=== PATIENT | female | born 1960 | race Caucasian/White ===

== ENCOUNTER 2018-04-25 11:39 | Emergency (ER) | payer OTHER ==
[~2018-04-25] VITALS: Ht 167.6 cm; Wt 79.4 kg
[~2018-04-25 11:39] MED LIST: AMBIEN5 M1 PO; BENADRYL25 MG PO; FINGERSTIX OTHER; GABAPENTIN100 M2 PO; GABAPENTIN300 M2 PO; Glucometer OTHER; LEVEMIR100 UNIT/1 SC; LISINOPRIL10 M1 PO; MIRTAZAPINE7.5 M1 PO; NICOTINE PATCH1 EAC3 TOP; NOVOLOG100 UNIT/2 SC; OMEPRAZOLE40 M1 PO; PAXIL10 M1 PO; PAXIL40 M1 PO; RISPERDAL1 M1 PO; RISPERDAL2 M1 PO; RISPERDAL25 MG/2 ML IM; TEST STRIPS1 EACH OTHER; TRAZODONE HCL100 M1 PO; TRAZODONE HCL50 M1 PO
--- NOTE | 2018-04-25 11:57 | ED GI/GU/ABDOMINAL COMPLAINT ---
History of Present Illness General Chief Complaint: Nausea, Vomiting, Diarrhea Stated Complaint: SEVERE DIARRHEA+N "I FEEL DEHYDRATED AND FATIGUED" Source: patient Exam Limitations: no limitations Vital Signs & Intake/Output Vital Signs & Intake/Output Vital Signs Date Time Temp Pulse Resp B/P B/P Pulse O2 O2 Flow FiO2 Mean Ox Delivery Rate 04/25 1345 97.1 82 18 120/77 98 Room Air 04/25 1217 98 Room Air 04/25 1152 98.5 84 16 118/80 98 Room Air Allergies Coded Allergies: naproxen (From ALEVE) (Severe, PALP 10/16/17) Triage Note: PRESENTS TO ED FRO EVALUATION OF N/V/D X 1 MONTH INTERMITTENTLY. REPORTS GENERALIZED WEAKNESS. Triage Nurses Notes Reviewed? yes ? N Is pt currently ? No Onset: Gradual Duration: constant Timing: recent history Quality/Severity: cramping Severity Numbers: 5 Radiation: no radiation HPI: Patient is a 57-year-old female with a past medical history of type 2 diabetes, alcohol abuse sobriety for over 10 years, cirrhosis, hypertension who presents emergency room with concerns of a one-month history of mild abdominal cramping, 4-5 episodes of loose watery diarrhea production a day with no blood no melena intermittent nausea. No abdominal pain today. States that eating makes better. Denies any fever chills back pain dysuria hematuria chest pain shortness of breath. Patient did have a endoscopy and colonoscopy in mid February with cutter grind tool technician Dr. Bradshaw with unremarkable findings. No recent antibiotic use denies any significant NSAID use (Janina MATA,Krishan) Reconcile Medications Blood Sugar Diagnostic (Test Strips) 1 EACH STRIP 1 STRIP OTHER TIDAC/HS blood sugar monitoring Diagnosis code Z79.4 Dicyclomine HCl 10 MG CAPSULE 1 CAP PO TID PRN ENTERITIS Diphenoxylate HCl/Atropine (Lomotil 2.5-0.025 MG Tablet) 2.5 MG-0.025 MG TABLET 1 TAB PO 4 TIMES/DAY PRN DIARRHEA Gabapentin 300 MG CAPSULE 300 MG PO Q4P PRN ANXIETY/AGITATION/INSOMNIA [Glucometer] 1 UNIT OTHER TIDAC/HS Blood sugar testing Diagnosis code Z79.4 May substitute any generic brand. Insulin Aspart (Novolog) 100 UNIT/ML VIAL 0 SC TIDAC diabetes <80,call MD 80-150 6 U 151-200 7 U 201-250 8 U 251-300 9 U 301-350 10 U 351-400 11 U Above 401 give 12 U & call MD Insulin Detemir (Levemir) 100 UNIT/ML VIAL 12 UNITS SC AT BEDTIME diabetes Lancets (Fingerstix) 1 EACH EACH 1 ZACK OTHER TIDAC/HS blood glucose testing Diagnosis code Z79.4 May substitute brand of lancet to any generic. Lisinopril 10 MG TABLET 10 MG PO DAILY hypertension Nicotine (Nicotine Patch) 21 MG/24 HOUR PATCH.TD24 21 MG TOP DAILY nicotine craving Omeprazole 40 MG CAPSULE.DR 1 CAP PO DAILY STOMACH PROBLEMS Ondansetron HCl (Zofran) 4 MG TABLET 1 TAB PO Q6-8P PRN NAUSEA Paroxetine HCl (Paxil) 40 MG TABLET 1 TAB PO DAILY anxiety/depression Risperidone (Risperdal) 2 MG TABLET 1 TAB PO BID psychotic symptoms Risperidone Microspheres (Risperdal Consta) 25 MG/2 ML SYRINGE 25 MG IM Q 2 WEEKS psychotic symptoms Last given 11/11/17. Next due 11/25/17. Trazodone HCl 100 MG TABLET 100 MG PO AT BEDTIME PRN INSOMNIA (Roland Robertson MD) Past History Travel History Traveled to [place] past 21 day No Medical History Any Pertinent Medical History? 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 No (Janina MATA,Krishan) Review of Systems Review of Systems Constitutional: Reports: no symptoms. EENTM: Reports: no symptoms. Respiratory: Reports: no symptoms. Cardiovascular: Reports: no symptoms. GI: Reports: see HPI. Genitourinary: Reports: see HPI. Musculoskeletal: Reports: no symptoms. Skin: Reports: no symptoms. Neurological/Psychological: Reports: no symptoms. Hematologic/Endocrine: Reports: no symptoms. Immunologic/Allergic: Reports: no symptoms. All Other Systems: Reviewed and Negative (Krishan Carmona) Physical Exam Physical Exam General Appearance: no apparent distress, alert, comfortable Head: atraumatic Eyes: Bilateral: normal appearance. Ears, Nose, Throat, Mouth: moist mucous membrane Neck: normal inspection Respiratory: normal breath sounds, chest non-tender Cardiovascular: regular rate/rhythm Gastrointestinal: normal bowel sounds, soft, non-tender Neurologic/Psych: no motor/sensory deficits, awake Skin: intact, normal color Core Measures ACS in differential dx? No Sepsis Present: No Sepsis Focused Exam Completed? No (Krishan Carmona) Progress Differential Diagnosis: AAA, AMI, appendicitis, biliary colic, bowel obstruction , colon cancer, cholecystitis, diverticulitis, endometritis, esophageal varices, gastritis, hepatitis, hernia, hemorrhoids, ischemic bowel, inflamm bowel dis, kidney stone, Kanika-Aimee tear, ovarian cyst, ovarian torsion, pancreatitis, PID/cervicitis, peptic ulcer, PUD/GERD, perforated viscous, SBO, UTI/pyelo Plan of Care: Orders Procedure Date/time Status CULTURE,STOOL 04/25 123 Active OVA AND PARASITE ANTIGENS 04/25 123 Active C.DIFFICILE 04/25 123 Active COMPREHENSIVE METABOLIC PANEL 04/25 1153 Complete CBC WITHOUT DIFFERENTIAL 04/25 1153 Complete Laboratory Tests 04/25/18 1201: Anion Gap 12, Estimated GFR 51 L, BUN/Creatinine Ratio 11.8, Glucose 148 H, Calcium 9.1, Total Bilirubin 0.6, AST 30, ALT 34, Alkaline Phosphatase 48, Total Protein 7.2, Albumin 4.0, Globulin 3.2, Albumin/Globulin Ratio 1.3, CBC w Diff NO MAN DIFF REQ, RBC 4.69, MCV 86.0, MCH 29.1, MCHC 33.9, RDW 13.8, MPV 9.4, Gran % 59.7, Lymphocytes % 21.9, Monocytes % 4.2, Eosinophils % 14.0 H, Basophils % 0.2, Absolute Granulocytes 3.0, Absolute Lymphocytes 1.1 L, Absolute Monocytes 0.2, Absolute Eosinophils 0.7, Absolute Basophils 0 Microbiology 04/25 123 STOOL: Cryptosporidium Antigen - ORD 05/27 1231 STOOL: Giardia Antigen (MINDY) - ORD 04/25 1231 STOOL: Clostridium difficile Toxin A & B - ORD 04/25 1231 STOOL: Stool Culture - ORD Patient on initial examination and resting comfortably bedside no apparent distress afebrile nontender abdomen And reviewed all blood work with patient patient was able tolerate by mouth Denies any symptoms for concerns of C. difficile time No stool was produced for culture in the ER Patient was strongly advised follow-up with discharge instructions and plan Patient does admit to me that she has poor dietary habits Initial ED EKG: none (Krishan Carmona) Departure Departure Disposition: HOME OR SELF CARE Condition: Stable Clinical Impression Primary Impression: Enteritis Secondary Impressions: Diarrhea Referrals: Anmol AGUILERA,Raquel (PCP/Family) Additional Instructions: As discussed begin drinking plenty of water for hydration. Prescription of Lomotil for your symptoms Zofran for nausea and Bentyl for your symptoms. Prescriptions waiting at [facility]. If no better on Thursday follow-up with gastroenterology Dr. Bradshaw. If symptoms worsen or if you develop new concerning symptom return to emergency room. Departure Forms: Customer Survey General Discharge Information Prescriptions: Current Visit Scripts Ondansetron HCl (Zofran) 1 TAB PO Q6-8P PRN NAUSEA #10 TAB Diphenoxylate HCl/Atropine (Lomotil 2.5-0.025 MG Tablet) 1 TAB PO 4 TIMES/DAY PRN DIARRHEA #20 TAB Dicyclomine HCl 1 CAP PO TID PRN ENTERITIS #9 CAP (Krishan Carmona) PA/HAND I THERMAL CUTTER Co-Sign Statement Statement: ED Attending supervision documentation- I saw and evaluated the patient. I have also reviewed all the pertinent lab results and diagnostic results. I agree with the findings and the plan of care as documented in the PA's/HAND I THERMAL CUTTER's documentation. x I have reviewed the ED Record and agree with the PA's/HAND I THERMAL CUTTER's documentation. [] Additions or exceptions (if any) to the PAs/HAND I THERMAL CUTTER's note and plan are summarized below: [] (Ailyn AGUILERA,Roland)
[2018-04-25 12:10] LABS: ABSOLUTE BASOPHIL COUNT 0 /CUMM (0.0-0.2); ABSOLUTE EOSINOPHIL COUNT 0.7 /CUMM (0.0-0.7); ABSOLUTE LYMPH COUNT 1.1 /CUMM (1.2-3.4); ABSOLUTE MONOCYTE COUNT 0.2 /CUMM (0.10-0.60); BASOPHIL % 0.2 % (0.0-2.0); GRANULOCYTE % 59.7 % (42.2-75.2); HEMATOCRIT 40.3 % (37-47); MEAN CORPUSCULAR HGB 29.1 PG (27.0-31.0); MEAN CORPUSCULAR HGB CONC 33.9 G/DL (33.0-37.0); MEAN PLATELET VOLUME 9.4 FL (7.4-10.4); RBC DISTRIBUTION WIDTH 13.8 % (11.5-14.5); RED BLOOD CELL CT 4.69 /CUMM (4.20-5.40)
[2018-04-25 12:14] LABS: PLATELET COUNT 82 /CUMM (130-400)
[2018-04-25] MEDS ORDERED: LOMOTIL 2.5-0.1 EACH PO (13:35)
[2018-04-25] MEDS ORDERED: ZOFRAN4 M2 PO (13:35)
[2018-04-25] MEDS ORDERED: DICYCLOMINE HCL10 M1 PO (13:35)
[2018-04-25 13:45] VITALS: BP 120/77
== END 2018-04-25 13:45 ==
LOC: ERH 11:39
PROVIDERS: Emergency Medicine
DX: K52.9 Noninfective gastroenteritis and colitis, unspecified (principal)
CPT/HCPCS: 87015; 87045; 87328; 87329; 87899; 87899-59

== ENCOUNTER 2018-05-24 11:51 | Observation (INO) | payer OTHER ==
[~2018-05-24] VITALS: Ht 167.6 cm; Wt 79.9 kg
[~2018-05-24 11:51] MED LIST changes: +DICYCLOMINE HCL10 M1 PO; +LOMOTIL 2.5-0.1 EACH PO; +ZOFRAN4 M2 PO
[2018-05-24 12:30] LABS: ABSOLUTE BASOPHIL COUNT 0 /CUMM (0.0-0.2); ABSOLUTE EOSINOPHIL COUNT 0.4 /CUMM (0.0-0.7); ABSOLUTE GRANULOCYTE CT 3.4 /CUMM (1.4-6.5); ABSOLUTE LYMPH COUNT 1.2 /CUMM (1.2-3.4); ABSOLUTE MONOCYTE COUNT 0.3 /CUMM (0.10-0.60); BASOPHIL % 0.2 % (0.0-2.0); EOSINOPHIL % 8.1 % (0-5); GRANULOCYTE % 63.1 % (42.2-75.2); HEMATOCRIT 38.7 % (37-47); MEAN CORPUSCULAR HGB 29.7 PG (27.0-31.0); MEAN CORPUSCULAR HGB CONC 34.3 G/DL (33.0-37.0); MEAN CORPUSCULAR VOLUME 86.4 FL (81.0-99.0); MEAN PLATELET VOLUME 9.5 FL (7.4-10.4); PLATELET COUNT 80 /CUMM (130-400); RBC DISTRIBUTION WIDTH 14.1 % (11.5-14.5); RED BLOOD CELL CT 4.48 /CUMM (4.20-5.40); WHITE BLOOD CELL COUNT 5.3 /CUMM (4.8-10.8)
--- NOTE | 2018-05-24 12:58 | ED SYNCOPE COMPLAINT ---
History of Present Illness General Chief Complaint: Syncope and Near-Syncope Stated Complaint: SIB PCP S/P "BLACKING OUT AND COLLAPSING" Source: patient Exam Limitations: no limitations Vital Signs & Intake/Output Vital Signs & Intake/Output Vital Signs Date Time Temp Pulse Resp B/P B/P Pulse O2 O2 Flow FiO2 Mean Ox Delivery Rate 05/24 1432 97 Room Air 05/24 1419 98.1 68 12 144/90 97 Room Air 05/24 1158 97.6 82 18 114/76 99 Room Air Allergies Coded Allergies: naproxen (From ALEVE) (Severe, PALP 10/16/17) Reconcile Medications Dulaglutide (Trulicity) 0.75 MG/0.5 ML PEN.INJCTR 1 INJ SC QW DIABETES ( Reported) Empagliflozin (Jardiance) 10 MG TABLET 1 TAB PO DAILY DIABETES (Reported) Gabapentin 400 MG CAPSULE 1 CAP PO 4 TIMES/DAY ANXIETY (Reported) Lisinopril 10 MG TABLET 10 MG PO DAILY hypertension Nicotine (Nicotine Patch) 21 MG/24 HOUR PATCH.TD24 21 MG TOP DAILY nicotine craving Pantoprazole Sodium 40 MG TABLET.DR 1 TAB PO DAILY GI (Reported) Paroxetine HCl (Paxil) 40 MG TABLET 1 TAB PO DAILY anxiety/depression Risperidone Microspheres (Risperdal Consta) 50 MG/2 ML SYRINGE 1 INJ SC Q 2 WEEKS MENTAL HEALTH (Reported) Sitagliptin Phosphate (Januvia) 100 MG TABLET 1 TAB PO DAILY DIABETES ( Reported) Trazodone HCl 100 MG TABLET 100 MG PO AT BEDTIME PRN INSOMNIA Triage Note: "I collapsed yesterday, I blacked out while I was standing at the counter." Denies BP/SOB but did feel lightheaded prior to syncopal episode. Feels lightheaded and "spacey". Reports similar episode last week also where she fell and broke her upper denture. Reports left shoulder pain, full ROM. Denies current pain, denies headache n/v. Orthos unremarkable Triage Nurses Notes Reviewed? yes Timing: recent history Precipitating Factors: blurred vision Loss of Consciousness: brief (seconds) HPI: Patient is a 57-year-old female with past medical history of anxiety depression and bipolar disorder and diabetes who was recently evaluated a month ago in the emergency room by me for concerns of diarrhea or patient states that she follow- up with her primary care doctor and was advised to continue medications that were administered by me. Patient states that the bowel movements have improved however yesterday patient felt dizzy lightheaded and flushed feeling on her face and then in a standing position in her kitchen and she fell and having a suspecting few seconds of syncopal episode or patient woke up with jaw pain biting her tongue and left shoulder pain. Her brother came to her aid however patient was artery alert and awake at the time Patient has remote history of alcohol use nothing recent denies any illicit drug use Patient still complains of "feeling off" denies any neck or low back pain or lower extremity pain (Krishan Carmona) Past History Travel History Traveled to [facility] past 21 day No Medical History Any Pertinent Medical History? 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 No (Krishan Carmona) Review of Systems Review of Systems Constitutional: Reports: no symptoms. EENTM: Reports: no symptoms. Respiratory: Reports: no symptoms. Cardiovascular: Reports: see HPI, syncope. GI: Reports: no symptoms. Genitourinary: Reports: no symptoms. Musculoskeletal: Reports: see HPI. Skin: Reports: no symptoms. Neurological/Psychological: Reports: no symptoms. All Other Systems: Reviewed and Negative (Krishan Carmona) Physical Exam Physical Exam General Appearance: no apparent distress, alert, comfortable Head: atraumatic Eyes: Bilateral: normal appearance, PERRL, EOMI. Ears, Nose, Throat: normal pharynx, normal ENT inspection Neck: no midline tenderness Respiratory: normal breath sounds, chest non-tender, no respiratory distress Cardiovascular: regular rate/rhythm Gastrointestinal: normal bowel sounds, soft, non-tender Extremities: normal inspection, no edema Cranial Nerves: normal hearing, normal speech, PERRL Skin: intact, warm/dry Comments: FACE- noted mandibular point tenderness with mild ecchymosis to the central midline the jaw Left shoulder generalized point tenderness noted full active range of motion normal inspection Core Measures ACS in differential dx? No CVA/TIA Diagnosis: No Sepsis Present: No Sepsis Focused Exam Completed? No (Janina MATA,Krishan) Progress Differential Diagnosis: AMI, aortic dissection, aortic valve, drug induced syncope, hyperventilation, orthostatic syncope, other valvular disease, pacemaker malfunction, pericardial tamponade, pulmonary embolus, seizure, sick sinus syndrome, subarachnoid hem., TIA/CVA, vasodepressor syncope, ventricular tach/fib Plan of Care: Orders Procedure Date/time Status Consistent Carbohydrate 1 05/[address] in observation 05/24 1500 Active Misc Message 05/24 1500 Active ED Holding Orders 05/24 1500 Active Vital Signs 05/24 1500 Active Code Status 05/24 1500 Active Add-on Test (ER Only) 05/24 1442 Active CULTURE,URINE 05/24 1400 Active Add-on Test (ER Only) 05/24 1346 Active URINE DRUG SCREEN FOR ER ONLY 05/24 1346 Complete URINALYSIS 05/24 1346 Complete PROLACTIN 05/24 1210 Complete ETHANOL 05/24 1210 Complete MISTAKE 05/24 1200 Active TROPONIN LEVEL 05/24 1200 Complete COMPREHENSIVE METABOLIC PANEL 05/24 1200 Complete CBC WITHOUT DIFFERENTIAL 05/24 1200 Complete EKG 05/24 1200 Active Laboratory Tests 05/24/18 1400: Urine Opiates Screen < 100, Methadone Screen 49, Barbiturate Screen < 60, Ur Phencyclidine Scrn < 6.00, Amphetamines Screen < 100, U Benzodiazepines Scrn < 85, Urine Cocaine Screen < 50, Urine Cannabis Screen < 5.00, Urinalysis LIGHT H , Urine Color YEL, Urine Clarity HAZY H, Urine pH 6.0, Ur Specific [place] <= 1.005, Urine Protein NEG, Urine Ketones NEG, Urine Nitrite NEG, Urine Bilirubin NEG, Urine Urobilinogen 0.2, Ur Leukocyte Esterase SMALL H, Ur Microscopic SEDIMENT EXAMINED, Urine WBC 15-25 H, Ur Epithelial Cells FEW, Urine Bacteria FEW H, Urine Mucus RARE, Micro UA Comment [place] YEAST H, Urine Hemoglobin NEG, Urine Glucose >=1000 H 06/25/18 1210: Anion Gap 9, Estimated GFR 57 L, BUN/Creatinine Ratio 13.0, Glucose 126 H, Calcium 9.0, Total Bilirubin 0.4, AST 29, ALT 29, Alkaline Phosphatase 51, Troponin I < 0.01, Total Protein 7.1, Albumin 3.9, Globulin 3.2, Albumin/ Globulin Ratio 1.2, Prolactin 106.1 H, CBC w Diff NO MAN DIFF REQ, RBC 4.48, MCV 86.4, MCH 29.7, MCHC 34.3, RDW 14.1, MPV 9.5, Gran % 63.1, Lymphocytes % 22.8, Monocytes % 5.8, Eosinophils % 8.1 H, Basophils % 0.2, Absolute Granulocytes 3.4, Absolute Lymphocytes 1.2, Absolute Monocytes 0.3, Absolute Eosinophils 0.4, Absolute Basophils 0, Serum Alcohol < 10.0 Microbiology 05/24 1400 URINE ROUT: Urine Culture - RECD Patient upon initial presentation is resting comply bedside patient has unremarkable imaging blood work and EKG however there is concerns of a unknown etiology of syncope patient will be placed in telemetry observation Discussed observation placement with patient who agrees and has no questions Patient was requesting ibuprofen for headache Diagnostic Imaging: Viewed by Me: CT Scan. Radiology Impression: no acute abnormality, no fracture Initial ED EKG: normal p-waves, normal sinus rhythm, 74 BPM,NSR Comments: PATIENT: AVINASH DODSON PRESENT AGE: 57 PATIENT ACCOUNT NO: [id number] : 61 LOCATION: [facility] ORDERING PHYSICIAN: Shukri MATA SERVICE DATE: 05/24/18 EXAM TYPE: CAT - CT CERV SPINE WO IV CONTRAST; CT HEAD WO IV CONTRAST; CT MAXILLOFACIAL W/O CON EXAMINATION: CT HEAD WITHOUT CONTRAST CT FACIAL BONES WITHOUT CONTRAST CT CERVICAL SPINE WITHOUT CONTRAST CLINICAL INFORMATION: Trauma. Right facial and jaw pain. Head strike. Syncope. COMPARISON: CT scan 10/16/2017. TECHNIQUE: Multidetector CT imaging of the head, facial bones and cervical spine was performed without the use of intravenous contrast. Coronal and sagittal reformatted images were generated at the technologist workstation. DLP: 1589.43 mGy-cm. FINDINGS: CT head: There is no evidence of acute intracranial hemorrhage or territorial infarction. No abnormal mass-effect or midline shift is seen. Ramirez to white matter differentiation is well preserved. No extra-axial fluid collections are identified. The ventricles are normal in size. There is no abnormal attenuation within the brain parenchyma. There is extensive atheromatous calcification of the bilateral cavernous internal carotid arteries. There are no large scalp contusions or hematomas. The orbits appear normal. The mastoid air cells and visualized portions of the paranasal sinuses are well-aerated. There is a sigmoid configuration of the nasal septum with bilateral bony nasal septal spurs. CT facial bones: There is no acute maxillofacial fracture. The mandible and mandibular condyles are intact. The pterygoid plates, zygomatic arches an lamina papyracea are intact. The bony orbital rims are intact. The nasal bones are intact. There is minimal increased density in the malar soft tissues on the right. Is mild mucoperiosteal thickening inferiorly in the right maxillary sinus. No air-fluid levels are seen. There is a sigmoid configuration of the nasal septum. There are left greater than right bony nasal septal spurs. The ostiomeatal complexes are clear. The ethmoid roofs are symmetric. The carotid canals are normally covered by bone. The patient is edentulous in the maxilla. The mastoid air cells and visualized middle ear cavities are well-aerated. The intraorbital structures are normal. The TMJs are unremarkable. CT cervical spine: There is straightening of the normal cervical lordosis. There is narrowing of intervertebral disc height at the level of C6-C7 with marginal osteophytes. Vertebral body heights are maintained. No fractures are demonstrated. The lateral masses of C1 and C2 are normally aligned. The dens is intact. The atlantooccipital articulations are normal. There are atheromatous calcifications of the aortic arch, great vessels of the neck and bilateral carotid bifurcations. The visualized lung apices are well-aerated. The thyroid gland is slightly heterogenous. IMPRESSION: CT head: 1. There are no acute bleeds or or territorial infarcts. 2. There are no acute fractures or large scalp contusions. CT maxillofacial: 1. There are no fractures. 2. There is minimal stranding in the right malar soft tissues. CT cervical spine: 1. There are no acute fractures or subluxations. 2. There is minimal spondylosis in the lower cervical spine. DICTATED BY: Osmany Little MD DATE/TIME DICTATED:05/24/181342 INDUSTRIAL ECONOMICS TEACHER:DESIRE DATE/TIME TRANSCRIBED:05/24/181342 PATIENT: AVINASH DODSON PRESENT AGE: 57 PATIENT ACCOUNT NO: [id number] : 61 LOCATION: [facility] ORDERING PHYSICIAN: Shukri MATA SERVICE DATE: 05/24/18 EXAM TYPE: RAD - XRY-SHOULDER COMPLETE-LEFT EXAMINATION: XR SHOULDER, LEFT CLINICAL INFORMATION: Left shoulder pain/upper arm pain after fall. COMPARISON: None TECHNIQUE: Four views of the left shoulder. FINDINGS: No acute fracture or dislocation. The left humeral head articulates appropriately with the glenoid. The joint space is maintained. The acromioclavicular joint is intact with mild degenerative change. The visualized lung is clear. IMPRESSION: No acute fracture or malalignment. Mild degenerative change at the acromioclavicular joint. DICTATED BY: Justin Ruvalcaba MD DATE/TIME DICTATED:05/24/181309 INDUSTRIAL ECONOMICS TEACHER:DESIRE DATE/TIME TRANSCRIBED:05/24/181309 CONFIDENTIAL, DO NOT COPY WITHOUT A (Krishan Carmona) Departure Departure Disposition: STILL A PATIENT Condition: Stable Clinical Impression Primary Impression: Syncope Secondary Impressions: Minor head injury Referrals: Raquel Corea MD (PCP/Family) Departure Forms: Customer Survey General Discharge Information Observation Note Spoke With: Gorge Kidd MD Physician Advisor Notified: LLOYD AGUILERA,WANDA [address] Place Patient In: Non-ED OBS Care Area Rationale for Observation: My rational for observation is as follows [patient requires telemetry observation for concerns of syncopal episode patient requires cardiology consultation telemetry monitoring repeat EKG and labs]. (Krishan Carmona) PA/BODY AND FENDER MECHANIC Co-Sign Statement Statement: ED Attending supervision documentation- [X] I saw and evaluated the patient. I have also reviewed all the pertinent lab results and diagnostic results. I agree with the findings and the plan of care as documented in the PA's/BODY AND FENDER MECHANIC's documentation. Patient presents for evaluation of a syncopal episode. Physical examination reveals nonfocal neurologic examination and unremarkable heart exam. [] I have reviewed the ED Record and agree with the PA's/BODY AND FENDER MECHANIC's documentation. [] Additions or exceptions (if any) to the PAs/BODY AND FENDER MECHANIC's note and plan are summarized below: [] (Shabana AGUILERA,Carlos Suazo)
--- NOTE | 2018-05-24 13:14 | RADIOLOGY REPORT ---
EXAMINATION: XR SHOULDER, LEFT CLINICAL INFORMATION: Left shoulder pain/upper arm pain after fall. COMPARISON: None TECHNIQUE: Four views of the left shoulder. FINDINGS: No acute fracture or dislocation. The left humeral head articulates appropriately with the glenoid. The joint space is maintained. The acromioclavicular joint is intact with mild degenerative change. The visualized lung is clear. IMPRESSION: No acute fracture or malalignment. Mild degenerative change at the acromioclavicular joint.
--- NOTE | 2018-05-24 14:06 | CT SCAN REPORT ---
EXAMINATION: CT HEAD WITHOUT CONTRAST CT FACIAL BONES WITHOUT CONTRAST CT CERVICAL SPINE WITHOUT CONTRAST CLINICAL INFORMATION: Trauma. Right facial and jaw pain. Head strike. Syncope. COMPARISON: CT scan 10/16/2017. TECHNIQUE: Multidetector CT imaging of the head, facial bones and cervical spine was performed without the use of intravenous contrast. Coronal and sagittal reformatted images were generated at the technologist workstation. DLP: 1589.43 mGy-cm. FINDINGS: CT head: There is no evidence of acute intracranial hemorrhage or territorial infarction. No abnormal mass-effect or midline shift is seen. Ramirez to white matter differentiation is well preserved. No extra-axial fluid collections are identified. The ventricles are normal in size. There is no abnormal attenuation within the brain parenchyma. There is extensive atheromatous calcification of the bilateral cavernous internal carotid arteries. There are no large scalp contusions or hematomas. The orbits appear normal. The mastoid air cells and visualized portions of the paranasal sinuses are well-aerated. There is a sigmoid configuration of the nasal septum with bilateral bony nasal septal spurs. CT facial bones: There is no acute maxillofacial fracture. The mandible and mandibular condyles are intact. The pterygoid plates, zygomatic arches an lamina papyracea are intact. The bony orbital rims are intact. The nasal bones are intact. There is minimal increased density in the malar soft tissues on the right. Is mild mucoperiosteal thickening inferiorly in the right maxillary sinus. No air-fluid levels are seen. There is a sigmoid configuration of the nasal septum. There are left greater than right bony nasal septal spurs. The ostiomeatal complexes are clear. The ethmoid roofs are symmetric. The carotid canals are normally covered by bone. The patient is edentulous in the maxilla. The mastoid air cells and visualized middle ear cavities are well-aerated. The intraorbital structures are normal. The TMJs are unremarkable. CT cervical spine: There is straightening of the normal cervical lordosis. There is narrowing of intervertebral disc height at the level of C6-C7 with marginal osteophytes. Vertebral body heights are maintained. No fractures are demonstrated. The lateral masses of C1 and C2 are normally aligned. The dens is intact. The atlantooccipital articulations are normal. There are atheromatous calcifications of the aortic arch, great vessels of the neck and bilateral carotid bifurcations. The visualized lung apices are well-aerated. The thyroid gland is slightly heterogenous. IMPRESSION: CT head: 1. There are no acute bleeds or or territorial infarcts. 2. There are no acute fractures or large scalp contusions. CT maxillofacial: 1. There are no fractures. 2. There is minimal stranding in the right malar soft tissues. CT cervical spine: 1. There are no acute fractures or subluxations. 2. There is minimal spondylosis in the lower cervical spine.
[2018-05-24] MEDS ORDERED: JARDIANCE10 M1 PO (14:48)
[2018-05-24] MEDS ORDERED: PANTOPRAZOLE SO40 M1 PO (14:49)
[2018-05-24] MEDS ORDERED: JANUVIA100 M1 PO (14:49)
[2018-05-24] MEDS ORDERED: GABAPENTIN400 M2 PO (14:50)
[2018-05-24] MEDS ORDERED: RISPERDAL50 MG/2 ML SC (14:51)
[2018-05-24] MEDS ORDERED: TRULICITY0.75 MG/01 SC (14:52)
--- NOTE | 2018-05-24 15:06 | History & Physical ---
Deepthi AGUILERA,[facility] 05/24/18 1504: General Information and HPI MD Statement: I have seen and personally examined AVINASH DODSON and documented this H& P. The patient is a 57 year old F who presented with a patient stated chief complaint of [syncope]. Source of Information: patient Exam Limitations: no limitations History of Present Illness: 57-year-old female with past medical history of anxiety, depression, alcohol related cirrhosis, nicotine dependence, bipolar, mitral valve prolapse, hypertension, CO poisoning requiring hyperbaric chamber Rx, diabetes, panic attack, GERD was brought to [facility] with a syncopal episode yesterday. Patient was in usual state of health until yesterday, patient was doing her usual kitchen work and was standing for more than 30 minutes and suddenly she felt dizzy, headache and had a blackout for a few seconds. Patient's brother heard a loud sound and came to see her during that time she was conscious, oriented and was able to verbalize. She did not have any bowel or bladder incontinence, seizures, altered sensation, weakness, numbness, tingling sensation, gait abnormality, chest pain, palpitation, nausea, vomiting, abdominal pain. Patient had similar episode a week ago while doing kitchen work. Patient was seen in [place] ED in the end of March for diarrhea and was given Lomotil, ondansetron, dicyclomine. She says her diarrhea is improved and now she has soft formed stools twice a day with no blood. Patient is eating and drinking well. She denies any recent change in medication, recent visit to other hospital. Patient sees Dr. gama and her primary care physician. Patient was diagnosed with mitral valve prolapse 25 years ago in [place]. Allergies/Medications Allergies: Coded Allergies: naproxen (From ALEVE) (Severe, PALP 10/16/17) Home Med list Dulaglutide (Trulicity) 0.75 MG/0.5 ML PEN.INJCTR 1 INJ SC QW DIABETES ( Reported) Empagliflozin (Jardiance) 10 MG TABLET 1 TAB PO DAILY DIABETES (Reported) Gabapentin 400 MG CAPSULE 1 CAP PO 4 TIMES/DAY ANXIETY (Reported) Lisinopril 10 MG TABLET 10 MG PO DAILY hypertension Nicotine (Nicotine Patch) 21 MG/24 HOUR PATCH.TD24 21 MG TOP DAILY nicotine craving Pantoprazole Sodium 40 MG TABLET.DR 1 TAB PO DAILY GI (Reported) Paroxetine HCl (Paxil) 40 MG TABLET 1 TAB PO DAILY anxiety/depression Risperidone Microspheres (Risperdal Consta) 50 MG/2 ML SYRINGE 1 INJ SC Q 2 WEEKS MENTAL HEALTH (Reported) Sitagliptin Phosphate (Januvia) 100 MG TABLET 1 TAB PO DAILY DIABETES ( Reported) Trazodone HCl 100 MG TABLET 100 MG PO AT BEDTIME PRN INSOMNIA Compliance With Home Meds: GOOD Past History Travel History Traveled to [place] past 21 day No Medical History Neurological: NONE EENT: NONE Cardiovascular: PALPITATIONS Respiratory: NONE Gastrointestinal: GERD, peptic ulcer disease Hepatic: NONE Renal: NONE Musculoskeletal: CHRONIC FOOT PAIN FROM "FRACTURES" Psychiatric: anxiety, bipolar disease, depression, PANIC ATTACKS Endocrine: diabetes Blood Disorders: NONE Cancer(s): NONE 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 Ambulation: independent IADLs Independent: shopping, housework, finances, food prep, telephone, transportation , medication admin. Review of Systems Review of Systems Constitutional: Reports: no symptoms. Cardiovascular: Reports: no symptoms. Respiratory: Reports: no symptoms. Genitourinary: Reports: no symptoms. Neurological/Psychological: Reports: headache (dizziness). Exam & Diagnostic Data Last 24 Hrs of Vital Signs/I&O Vital Signs Date Time Temp Pulse Resp B/P B/P Pulse O2 O2 Flow FiO2 Mean Ox Delivery Rate 05/24 1718 98.0 74 18 157/98 95 Room Air 05/24 1432 97 Room Air 05/24 1419 98.1 68 12 144/90 97 Room Air 05/24 1158 97.6 82 18 114/76 99 Room Air Intake & Output 05/24 1600 05/24 0800 05/24 0000 Intake Total Output Total Balance Patient 168 lb Weight Physical Exam General Appearance Alert, Oriented X3, Cooperative, No Acute Distress Cardiovascular Regular Rate, Normal S1, Normal S2, No Murmurs Lungs Clear to Auscultation Abdomen Soft, No Tenderness, No Hepatospenomegaly Neurological Normal Speech, Strength at 5/5 X4 Ext, Normal Tone, Sensation Intact Extremities No Cyanosis, No Edema, Normal Pulses Last 24 Hrs of Labs/Kwasi: Laboratory Tests 05/24/18 1400: Urine Opiates Screen < 100, Methadone Screen 49, Barbiturate Screen < 60, Ur Phencyclidine Scrn < 6.00, Amphetamines Screen < 100, U Benzodiazepines Scrn < 85, Urine Cocaine Screen < 50, Urine Cannabis Screen < 5.00, Urinalysis LIGHT H , Urine Color YEL, Urine Clarity HAZY H, Urine pH 6.0, Ur Specific [place] <= 1.005, Urine Protein NEG, Urine Ketones NEG, Urine Nitrite NEG, Urine Bilirubin NEG, Urine Urobilinogen 0.2, Ur Leukocyte Esterase SMALL H, Ur Microscopic SEDIMENT EXAMINED, Urine WBC 15-25 H, Ur Epithelial Cells FEW, Urine Bacteria FEW H, Urine Mucus RARE, Micro UA Comment BUDDING YEAST H, Urine Hemoglobin NEG, Urine Glucose >=1000 H 05/24/18 1210: Anion Gap 9, Estimated GFR 57 L, BUN/Creatinine Ratio 13.0, Glucose 126 H, Hemoglobin A1c Pending, Calcium 9.0, Total Bilirubin 0.4, AST 29, ALT 29, Alkaline Phosphatase 51, Troponin I < 0.01, Total Protein 7.1, Albumin 3.9, Globulin 3.2, Albumin/Globulin Ratio 1.2, Vitamin B12 259, Folate 6.6, Prolactin 106.1 H, CBC w Diff NO MAN DIFF REQ, RBC 4.48, MCV 86.4, MCH 29.7, MCHC 34.3, RDW 14.1, MPV 9.5, Gran % 63.1, Lymphocytes % 22.8, Monocytes % 5.8, Eosinophils % 8.1 H, Basophils % 0.2, Absolute Granulocytes 3.4, Absolute Lymphocytes 1.2, Absolute Monocytes 0.3, Absolute Eosinophils 0.4, Absolute Basophils 0, Serum Alcohol < 10.0 Microbiology 05/24 1400 URINE ROUT: Urine Culture - RECD Assessment/Plan Assessment: 57-year-old female with past medical history of anxiety, depression, alcohol related cirrhosis, nicotine dependence, bipolar, mitral valve prolapse, hypertension, CO poisoning requiring hyperbaric chamber Rx, diabetes, panic attack, GERD was brought to [facility] with a syncopal episode yesterday. Admission labs WBC 5.3, hemoglobin 13.3, platelet 80, sodium 143 potassium 4.4, BUN 13, creatinine 1, AST 29, ALT 29, alkaline phosphatase 51, prolactin 106.1 Admission vitals Temperature 98.1, pulse rate 68, respiratory rate 12, blood pressure 144/90 saturation 97 at room air. Colonoscopy February 2018-normal study Endoscopy February 2018-no esophageal/gastric varices CT head: 1. There are no acute bleeds or or territorial infarcts. 2. There are no acute fractures or large scalp contusions. CT maxillofacial: 1. There are no fractures. 2. There is minimal stranding in the right malar soft tissues. CT cervical spine: 1. There are no acute fractures or subluxations. 2. There is minimal spondylosis in the lower cervical spine. Shoulder x-ray No acute fracture or malalignment. Mild degenerative change at the acromioclavicular joint. Home medications Dulaglutide injection subcu empagliflozin 10 mg daily Gabapentin 404 times a day Lisinopril 10 mg daily Nicotine patch Pantoprazole 40 mg daily Paroxetine 40 mg daily Risperidone and subcu injection every 2 weeks Januvia 100 mg tablet Trazodone 100 mg as needed Assessment and plan 1. Syncope likely vasovagal/cardiogenic 2. Type 2 diabetes 3. Chronic thrombocytopenia * OBSERVE IN TELEMETRY * Vitals every shift, orthostatic * Troponins and EKG at 6 PM. Echocardiogram and cardiology consult in the a.m. * In view of hyperprolactinemia we will hold risperidone * [id number] and NovoLog sliding scale insulin * Nicotine dependence-nicotine patch 21 mg * Hypertension-continue lisinopril * Hyperprolactinemia-can be secondary due to risperidone use. Seizures need to be ruled out. We will take an EEG. * Chronic thrombocytopenia-patient might need hematology follow-up as outpatient. Code-full code Diet-heart healthy diet DVT prophylaxis-Alps in view of thrombocytopenia As Ranked By This Provider Problem List: 1. Syncope Core Measures/Misc (08/16) Acute Coronary Syndrome ACS Diagnosis: No Congestive Heart Failure Congestive Heart Failure Diagnosis No Cerebrovascular Accident CVA/TIA Diagnosis: No VTE (View Protocol) VTE Risk Factors Age>40 No Mechanical VTE Prophylaxis d/t Other No VTE Pharm Prophylaxis d/t Other Sepsis (View protocol) Sepsis Present: No If YES complete Sepsis Event Note If YES complete Sepsis Event Note Cameron AGUILERA,Cm 05/24/18 1529: Core Measures/Misc (08/16) Sepsis (View protocol) If YES complete Sepsis Event Note If YES complete Sepsis Event Note Resident Review Statement Resident Statement: examined this patient, discussed with internal grinder tender, agreed with internal grinder tender, amended to note Other Findings: 57-year-old lady with a past medical history significant for anxiety, depression , bipolar disorder, diabetes presents for evaluation of a syncopal episode. No reports of seizure-like activity, postictal confusion, bowel or urinary incontinence, focal neurological deficits including facial droop or dysarthria. Patient reported premonition symptoms of lightheadedness, feeling flushed just prior to the syncopal episode. Impression * Syncope. The presence of premonition symptoms of lightheadedness and feeling flushed could be indicative of a neurocardiogenic syncope episode. The lack of chest pain, palpitation symptoms in a patient with a normal EKG with no conduction abnormalities makes cardiogenic shock less likely. However, her hx of MVP may warrant further cardiac workup such as an echo.She is orthostatic negative. Hypoglycemia rather than syncope should also be investigated as possible cause of patient loss of consciousness (she is on Trulicity). * Hyperprolactinemia: Most likely iatrogenic secondary to drug use of risperidone. This is most likely due to dopamine blockade in the tubero- infundibular tract of the hypothalamus, which in turn reverses the dopaminergic inhibition of prolactin in the anterior pituitary. * Thrombocytopenia; acute on chronic * History of chronic diseases; anxiety, depression, bipolar disease, diabetes Plan Place on observation telemetry for close cardiac monitoring and 24 hour monitoring of paroxysmal arrhythmias Trend troponins and EKG one more time Obtain echo to assess for valvular pathologies and MVP progression Continue BP meds Carbohydrate diet Accu-Cheks 3 times a day and bedtime NovoLog sliding scale Will hold oral hypoglycemic agents Will trend platelet count PT tomorrow am DVT prophylaxis; ALPS CODE STATUS: full Code GoldKishore [email or web address] 05/24/18 1542: Core Measures/Misc (08/16) Sepsis (View protocol) If YES complete Sepsis Event Note If YES complete Sepsis Event Note Attending MD Review Statement Attending Statement Attending MD Statement: examined this patient, discuss w/resident/PA/SKIP PITMAN, agreed w/resident/PA/SKIP PITMAN, reviewed EMR data (avail), discussed with nursing, discussed with case mgmt Attending Assessment/Plan: 57 yr old female with pmh of DM, HTN , Nicotine dependence , Psychiatry issues who currently lives with her mother and dad presented with passing out. Pt says she had similar episode one week ago when she was in kitchen and at that time she felt dizzy and lightheaded and passed out and fell to the kitchen floor . Pt had another episode yesterday and hit her chin and broke her denture. Denied any chest pain or palpitations. denies any urinary or bowel incontinence. denies any h/o seizure disorder. Pt does give h/o Mitral valve prolapse but has not seen any investment executive in last few years. Her DM is well controlled and last A1c according to her was 5.5. Pt also had a fall few months back with left patellar fracture not requiring any surgery. She smokes 2-3 cigs a week and is currently using nicotine patch. Syncopal episode- Recurrent. Will monitor on tele as observation. Will repeat EKG, will get trop times 3, will get cardiology consult and will get EEG . will f/u on blood sugars to make sure she is not becoming hypoglycemic, will repeat A1c. Nicotine dependence- cont on nicotine patch. Will get PT consult to evaluate gait. HTN- cont on lisinopril. DM- will recheck Aic and will do accucheks and put her on SSI. d/w pt the care plan.
[2018-05-24 19:23] VITALS: BP 180/96
--- NOTE | 2018-05-24 21:49 | Cons- Cardiology ---
General Information and HPI Consulting Request Date of Consult: 05/24/18 Requested By: Huyen Gold MD Reason for Consult: syncope Source of Information: patient History of Present Illness: Daniela patient admitted after syncope. She describes standing at the kitchen counter for 30 minutes and feeling dizzy for approximately 2 minutes prior to losing consciousness and faliing, hitting her chin on the countertop in the process, leaving a bruise, and breaking her dentures. She did not have any neurological deficits afterwards, and does not know precisely how long she was on the floor, but suspects it was only seconds. She denies chest pains, denies palpitations, denies orthopnea, denies paroxysmal nocturnal dyspnea, denies lower extremity edema. Patient had another similar episode while walking for some time, feeling dizzy for a minute or 2 and falling to the ground afterward, without any subsequent trauma however, approximately a week ago. Patient has a good functional capacity normally, although she is quite sedentary. Denies dyspnea with daily activities, is capable of walking up a small hill without the need to stop and catch her breath. She is quite concerned she may have recurrence of syncope and sustain other injuries. Patient admits to being rather dehydrated over the past week or 2, with the warmer weather. Allergies/Medications Allergies: Coded Allergies: naproxen (From ALEVE) (Severe, PALP 10/16/17) Home Med List: Dulaglutide (Trulicity) 0.75 MG/0.5 ML PEN.INJCTR 1 INJ SC QW DIABETES ( Reported) Empagliflozin (Jardiance) 10 MG TABLET 1 TAB PO DAILY DIABETES (Reported) Gabapentin 400 MG CAPSULE 1 CAP PO 4 TIMES/DAY ANXIETY (Reported) Lisinopril 10 MG TABLET 10 MG PO DAILY hypertension Nicotine (Nicotine Patch) 21 MG/24 HOUR PATCH.TD24 21 MG TOP DAILY nicotine craving Pantoprazole Sodium 40 MG TABLET.DR 1 TAB PO DAILY GI (Reported) Paroxetine HCl (Paxil) 40 MG TABLET 1 TAB PO DAILY anxiety/depression Risperidone Microspheres (Risperdal Consta) 50 MG/2 ML SYRINGE 1 INJ SC Q 2 WEEKS MENTAL HEALTH (Reported) Sitagliptin Phosphate (Januvia) 100 MG TABLET 1 TAB PO DAILY DIABETES ( Reported) Trazodone HCl 100 MG TABLET 100 MG PO AT BEDTIME PRN INSOMNIA Current Medications: Current Medications Sig/Araims Start time Last Medication Dose Route Stop Time Status Admin Gabapentin 400 MG 4 TIMES/DAY 05/24 1700 AC 05/24 PO 1745 Insulin Aspart 0 TIDAC/HS 05/24 1700 AC SC Lisinopril 10 MG DAILY 05/25 0900 AC PO Nicotine 0 .STK-MED ONE 05/24 1725 DC TOP Nicotine 21 MG DAILY 05/24 1624 AC 05/24 TOP 1733 Omeprazole 0 .STK-MED ONE 05/24 1725 DC PO Omeprazole 40 MG DAILY AC 05/24 1630 AC 05/24 PO 1733 Paroxetine HCl 40 MG DAILY 05/25 0900 AC PO Trazodone HCl 100 MG AT BEDTIME PRN 05/24 1630 AC PO Review of Systems Review of Systems Constitutional: Denies: see HPI. Cardiovascular: Reports: syncope. Denies: chest pain, edema, orthopena, palpitations, peripheral edema. Respiratory: Denies: cough, hemoptysis, orthopnea, short of breath, sputum production, stridor, wheezing. GI: Denies: abdominal pain, bloating, constipation, diarrhea, distention, bowel incontinence, melena, nausea, bloody stool, vomiting, steatorrhea. Genitourinary: Denies: discharge, dysuria, frequency, hematuria. Musculoskeletal: Denies: back pain, joint pain, joint swelling, muscle pain, neck pain. Neurological/Psychological: Reports: anxiety. Denies: ataxia, cognitive dysfunction, confusion, depressed, numbness, paresthesia, pre-existing deficit, tremors, weakness. 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 Home Services at Home: None Primary Language: South African Smoking Status: Current Some Day Smoker ETOH Use: denies use Illicit Drug Use: marijuana Functional Ability ADLs Independent: dressing, eating, toileting, bathing. Ambulation: independent IADLs Independent: shopping, housework, finances, food prep, telephone, transportation , medication admin. Exam & Diagnostic Data Vital Signs and I&O Vital Signs Date Time Temp Pulse Resp B/P B/P Pulse O2 O2 Flow FiO2 Mean Ox Delivery Rate 05/24 1923 98.3 78 16 180/96 97 05/24 1718 98.0 74 18 157/98 95 Room Air 05/24 1432 97 Room Air 05/24 1419 98.1 68 12 144/90 97 Room Air 05/24 1158 97.6 82 18 114/76 99 Room Air Intake & Output 05/24 1600 05/24 0800 05/24 0000 05/23 1600 05/23 0800 05/23 0000 Intake Total Output Total Balance Patient 168 lb Weight Physical Exam General Appearance: well developed/nourished, alert, awake, anxious, comfortable Head: ecchymosis (below right side of chin) Eyes: Bilateral: normal appearance, PERRL, EOMI. Neck: supple, full range of motion, trachea mid line (no jvd) Respiratory: normal breath sounds, chest non-tender, no respiratory distress, quiet respiration, lungs clear Cardiovascular: regular rate/rhythm, normal peripheral pulses (absence of murmur or rub) Gastrointestinal: normal bowel sounds, soft, non-tender Extremities: normal capillary refill, normal range of motion, no edema Labs/Kwasi Results: Laboratory Tests 05/24 05/24 1400 1210 Chemistry Sodium (137 - 145 mmol/L) 143 Potassium (3.5 - 5.1 mmol/L) 4.2 Chloride (98 - 107 mmol/L) 104 Carbon Dioxide (22 - 30 mmol/L) 29 Anion Gap (5 - 16) 9 BUN (7 - 17 mg/dL) 13 Creatinine (0.5 - 1.0 mg/dL) 1.0 Estimated GFR (>60 ml/min) 57 L BUN/Creatinine Ratio (7 - 25 %) 13.0 Glucose (65 - 99 mg/dL) 126 H Hemoglobin A1c (4.2 - 5.8 %) Pending Calcium (8.4 - 10.2 mg/dL) 9.0 Total Bilirubin (0.2 - 1.3 mg/dL) 0.4 AST (14 - 36 U/L) 29 ALT (9 - 52 U/L) 29 Alkaline Phosphatase (<127 U/L) 51 Troponin I (< 0.11 ng/ml) < 0.01 Total Protein (6.3 - 8.2 g/dL) 7.1 Albumin (3.5 - 5.0 g/dL) 3.9 Globulin (1.9 - 4.2 gm/dL) 3.2 Albumin/Globulin Ratio (1.1 - 2.2 %) 1.2 Vitamin B12 (239 - 931 pg/mL) 259 Folate (2.76 - 20.0 ng/mL) 6.6 Prolactin (3.0 - 18.6 ng/mL) 106.1 H Hematology CBC w Diff NO MAN DIFF REQ WBC (4.8 - 10.8 /CUMM) 5.3 RBC (4.20 - 5.40 /CUMM) 4.48 Hgb (12.0 - 16.0 G/DL) 13.3 Hct (37 - 47 %) 38.7 MCV (81.0 - 99.0 FL) 86.4 MCH (27.0 - 31.0 PG) 29.7 MCHC (33.0 - 37.0 G/DL) 34.3 RDW (11.5 - 14.5 %) 14.1 Plt Count (130 - 400 /CUMM) 80 L MPV (7.4 - 10.4 FL) 9.5 Gran % (42.2 - 75.2 %) 63.1 Lymphocytes % (20.5 - 51.1 %) 22.8 Monocytes % (1.7 - 9.3 %) 5.8 Eosinophils % (0 - 5 %) 8.1 H Basophils % (0.0 - 2.0 %) 0.2 Absolute Granulocytes (1.4 - 6.5 /CUMM) 3.4 Absolute Lymphocytes (1.2 - 3.4 /CUMM) 1.2 Absolute Monocytes (0.10 - 0.60 /CUMM) 0.3 Absolute Eosinophils (0.0 - 0.7 /CUMM) 0.4 Absolute Basophils (0.0 - 0.2 /CUMM) 0 Toxicology Urine Opiates Screen (>2000 NG/ML) < 100 Methadone Screen (>300 NG/ML) 49 Barbiturate Screen (>200 NG/ML) < 60 Ur Phencyclidine Scrn (>25 NG/ML) < 6.00 Amphetamines Screen (>1000 NG/ML) < 100 U Benzodiazepines Scrn (>200 NG/ML) < 85 Urine Cocaine Screen (>300 NG/ML) < 50 Urine Cannabis Screen (>50 NG/ML) < 5.00 Serum Alcohol (<10 MG/DL) < 10.0 Urines Urinalysis LIGHT H Urine Color (YEL,AMB,STR) YEL Urine Clarity (CLEAR) HAZY H Urine pH (5.0 - 8.0) 6.0 Ur Specific Maria Stein (1.001 - 1.035) <= 1.005 Urine Protein (NEG,<30 MG/DL) NEG Urine Ketones (NEG) NEG Urine Nitrite (NEG) NEG Urine Bilirubin (NEG) NEG Urine Urobilinogen (0.1 - 1.0 EU/dl) 0.2 Ur Leukocyte Esterase (NEG) SMALL H Ur Microscopic SEDIMENT EXAMINED Urine WBC (0 - 2 /HPF) 15-25 H Ur Epithelial Cells (NONE,FEW) FEW Urine Bacteria (NEG/NONE) FEW H Urine Mucus (FEW,NONE) RARE Micro UA Comment BUDDING YEAST H Urine Hemoglobin (NEG) NEG Urine Glucose (N MG/DL) >=1000 H Assessment/Plan Assessment/Plan 2 episodes of syncope preceded by prodromal dizziness, in patient medicated with lisinopril 10 mg daily, with probable dehydration superimposed. Always in standing position. No arrhythmia or ischmia detected on telemetry and EKG. Cardiac echo does not reveal any sigificant ventricular or valvular dysfunction which would explain syncope. I would discharge patient and do an event monitor at the office as outpatient ( monitoring for 3 weeks), this was explained to the patient as well as usual precautions for orhtostatic hypotension/vasovagal syncope: hydrate adequately, sit or ideally lie down if dizziness. Consult Acknowledgment - Thank you for your consult request.
[2018-05-24 22:15] VITALS: BP 108/70
--- NOTE | 2018-05-25 05:00 | PN- Student ---
Subjective Subjective: This is a 57 year old woman who presents for evaluation of syncope. On 05/23/18 at 4:30 pm she was standing in her kitchen cooking. She began to feel dizzy, felt the room spin, lost her balance, and tried to grab on to the counter. She lost consciousness for a few seconds and fell, biting her tongue and breaking her dentures in the process. Her brother who was home at the time heard the fall and came to her assistance. She has had one similar episode, that also occurred in the kitchen after a long episode of standing a week prior. No other history of syncope. She is a diabetic and checked her blood sugar after this most recent episode of syncope and found it to be normal. She has been experiencing headaches, and experienced some blurred vision prior to the time of the incident, but denies nausea, vomiting, shortness of breath, chest pain, tachycardia, recent fever, or changes in posture prior to the syncopal event. She was treated two weeks ago for diarrhea and while she has mostly recovered she notes two "loose" bowel movements a day. She has had no changes to her appetite, and drinks plenty of water. She reports that she did start taking Risperidone four months prior for bipolar. She does not believe it is working because she still hears auditory hallucinations occassionally. This history of auditory hallucinations began after her . Past medical history Bipolar - treated previously by Dr. Flores. Diabetes Mellitus Diarrhea Mitral Valve Prolapse Allergies -Naproxen Medications Current Medications Sig/Aramis Start time Last Medication Dose Stop Time Status Admin Lisinopril 10 MG DAILY 05/25 09 AC (Prinivil) Paroxetine HCl 40 MG DAILY 05/25 09 AC (Paxil) Gabapentin 400 MG 4 TIMES/DAY 05/24 1700 AC 05/24 (Neurontin) 2248 Insulin Aspart 0 TIDAC/HS 05/24 1700 AC (NovoLOG) Omeprazole 40 MG DAILY AC 05/24 1630 AC 05/24 (Prilosec) 1733 Trazodone HCl 100 MG AT BEDTIME PRN 05/24 1630 AC (Desyrel) Nicotine 21 MG DAILY 05/24 1624 AC 05/24 (Nicoderm) 1733 Social History She is trying to quit smoking. Normally she was smoking 5 cigarettes per day. She is now smoking 2 per week. Denies ETOH. Denies illegal drug use. She walks a mile every day. Family History Father - Coronary artery disease Mother - Hypothyroid Objective Objective: Physical Exam General: Patient was found resting comfortably in ED. She was alert and oriented, pleasant and well spoken. Head: Normocephalic, atraumatic Heart: 1/6 systolic murmur. Regular rate. Lungs: Even thoracic expansion bilaterally. Lungs clear to auscultation. Abdomen: Soft and non tender in all four quadrants. Results Results: Laboratory Tests 05/25/18 0857: Prolactin 107.5 H, CBC w Diff NO MAN DIFF REQ, RBC 4.54, MCV 86.1, MCH 29.0, MCHC 33.7, RDW 14.4, MPV 9.4, Gran % 64.7, Lymphocytes % 21.9, Monocytes % 5.6, Eosinophils % 7.6 H, Basophils % 0.2, Absolute Granulocytes 3.3, Absolute Lymphocytes 1.1 L, Absolute Monocytes 0.3, Absolute Eosinophils 0.4, Absolute Basophils 0 05/24/18 1400: Urine Opiates Screen < 100, Methadone Screen 49, Barbiturate Screen < 60, Ur Phencyclidine Scrn < 6.00, Amphetamines Screen < 100, U Benzodiazepines Scrn < 85, Urine Cocaine Screen < 50, Urine Cannabis Screen < 5.00, Urinalysis LIGHT H , Urine Color YEL, Urine Clarity HAZY H, Urine pH 6.0, Ur Specific [place] <= 1.005, Urine Protein NEG, Urine Ketones NEG, Urine Nitrite NEG, Urine Bilirubin NEG, Urine Urobilinogen 0.2, Ur Leukocyte Esterase SMALL H, Ur Microscopic SEDIMENT EXAMINED, Urine WBC 15-25 H, Ur Epithelial Cells FEW, Urine Bacteria FEW H, Urine Mucus RARE, Micro UA Comment BUDDING YEAST H, Urine Hemoglobin NEG, Urine Glucose >=1000 H 05/24/18 1210: Anion Gap 9, Estimated GFR 57 L, BUN/Creatinine Ratio 13.0, Glucose 126 H, Hemoglobin A1c 5.4, Calcium 9.0, Total Bilirubin 0.4, AST 29, ALT 29, Alkaline Phosphatase 51, Troponin I < 0.01, Total Protein 7.1, Albumin 3.9, Globulin 3.2, Albumin/Globulin Ratio 1.2, Vitamin B12 259, Folate 6.6, Prolactin 106.1 H, CBC w Diff NO MAN DIFF REQ, RBC 4.48, MCV 86.4, MCH 29.7, MCHC 34.3, RDW 14.1, MPV 9.5, Gran % 63.1, Lymphocytes % 22.8, Monocytes % 5.8, Eosinophils % 8.1 H, Basophils % 0.2, Absolute Granulocytes 3.4, Absolute Lymphocytes 1.2, Absolute Monocytes 0.3, Absolute Eosinophils 0.4, Absolute Basophils 0, Serum Alcohol < 10.0 Microbiology 05/24 1400 URINE ROUT: Urine Culture - RES YEAST Assessment/Plan Assessment: This is a 57 year old woman with a past history of anxiety, depression, alcohol related cirrhosis, nicotine use, bipolar disorder, mitral valve prolapse, hypertension, carbon monoxide poisoning treated by hyperbaric chamber, diabetes, and panic attacks. Her most recent episodes of syncope are likely neurocardiogenic in nature. She has suffered no post syncope sequela. She has had serial troponins and EKG with no abnormalities found. She has had no bleeds /fractures/subluxations found on CT. Her syncopal episodes appear unrelated to changes in posture. Both syncopal episodes were following prolonged standing with a spontaneous return to consciousness. Plan: Per cardiology consult recommendation, she can be discharged with an event monitor and follow up with outpatient cardiology. This is a low risk patient for severe syncopal event. Schedule outpatient EEG with neurology as well.
[2018-05-25 06:39] VITALS: BP 132/82
--- NOTE | 2018-05-25 06:40 | PN-Observation ---
Deepthi AGUILERA,[facility] 05/25/18 0639: Observation Note Observation Note _ I have personally examined AVINASH DODSON. her disposition is uncertain at this time. Before a determination can be made, she requires continued observation for the following reasons [syncope]. Assessment/Plan Medical Assessment: 57-year-old female with past medical history of anxiety, depression, alcohol related cirrhosis, nicotine dependence, bipolar, mitral valve prolapse, hypertension, CO poisoning requiring hyperbaric chamber Rx, diabetes, panic attack, GERD was brought to [facility] with a syncopal episode. Assessment and plan 1. Syncope likely vasovagal/cardiogenic 2. Type 2 diabetes 3. Chronic thrombocytopenia * Observation and telemetry * No further episodes of syncope * Troponin and EKG negative. * Echocardiogram normal. Patient was seen by cardiology was suggested to do event monitoring as outpatient. * Patient will go home today. We will continue all her home medications. We will give referral to cardiology to follow for event monitoring as outpatient. * Patient will take EEG as outpatient. Problem List: 1. Syncope Subjective Follow-up For: Syncope Complaints: no complaints Tele-Events Since Last Visit: Normal sinus rhythm heart rate 70 Subjective: Patient seen and examined at bedside no overnight events. Patient denies fall, chest pain, palpitation, nausea, vomiting. Review of Systems Constitutional: Reports: no symptoms. Objective Last 24 Hrs of Vital Signs/I&O Vital Signs Date Time Temp Pulse Resp B/P B/P Pulse O2 O2 Flow FiO2 Mean Ox Delivery Rate 05/25 0934 132/82 05/25 0652 80 132/82 05/25 0639 98.7 80 18 132/82 94 Room Air 05/24 2215 97.5 76 14 108/70 95 05/24 1923 98.3 78 16 180/96 97 05/24 1718 98.0 74 18 157/98 95 Room Air Intake & Output 05/25 1600 05/25 0800 05/25 0000 Intake Total 220 300 Output Total Balance 220 300 Intake, Oral 220 300 Patient 176 lb 176 lb Weight Weight Standing Scale Measurement Method Physical Exam General Appearance: Alert, Oriented X3, Cooperative, No Acute Distress Cardiovascular: Regular Rate, Normal S1, Normal S2, No Murmurs Lungs: Normal Air Movement Abdomen: Soft, No Tenderness, No Hepatospenomegaly Neurological: Normal Speech, Strength at 5/5 X4 Ext, Normal Tone, Sensation Intact, Cranial Nerves 3-12 NL Extremities: No Cyanosis, No Edema, Normal Pulses Current Medications: Current Medications Sig/Aramis Start time Last Medication Dose Route Stop Time Status Admin Gabapentin 400 MG 4 TIMES/DAY 05/24 1700 DCD 05/25 PO 0934 Insulin Aspart 0 TIDAC/HS 05/24 1700 DCD SC Lisinopril 10 MG DAILY 05/25 0900 DCD 05/25 PO 0934 Nicotine 0 .STK-MED ONE 05/24 1725 DC TOP Nicotine 21 MG DAILY 05/24 1624 DCD 05/25 TOP 0934 Omeprazole 0 .STK-MED ONE 05/24 1725 DC PO Omeprazole 40 MG DAILY AC 05/24 1630 DCD 05/25 PO 0620 Paroxetine HCl 40 MG DAILY 05/25 0900 DCD 05/25 PO 0934 Trazodone HCl 100 MG AT BEDTIME PRN 05/24 1630 DCD PO Last 24 Hrs of Labs/Mics: Laboratory Tests 05/25/18 0857: Prolactin 107.5 H, CBC w Diff NO MAN DIFF REQ, RBC 4.54, MCV 86.1, MCH 29.0, MCHC 33.7, RDW 14.4, MPV 9.4, Gran % 64.7, Lymphocytes % 21.9, Monocytes % 5.6, Eosinophils % 7.6 H, Basophils % 0.2, Absolute Granulocytes 3.3, Absolute Lymphocytes 1.1 L, Absolute Monocytes 0.3, Absolute Eosinophils 0.4, Absolute Basophils 0 Alyssa Kumar MD 05/25/18 1525: Addendum Addendum Patient seen and examined at bedside. Agree with resident assessment and plan. Patient has been seen by cardiology. Will be discharged home. Will follow up with neurology for an outpatient EEG and seizure workup, though this is an unlikely etiology for her syncopal symptoms. Will follow up with cardiology for an event monitor.
[2018-05-25 06:52] VITALS: BP 132/82
--- NOTE | 2018-05-25 08:13 | ECHOCARDIOGRAM REPORT ---
AVINASH DODSON Age: 57 : 1960 Gender: F Exam Date: 05/24/2018 19:31 Exam Location: [address] Ht (in): 66 Wt (lb): 168 BSA: 1.90 BP: 144 / 90 Ordering Physician: Duyen Lacey MD Referring Physician: Duyen Lacey MD Technologist: Yadira Vazquez [facility] Room Number: 185-01 Indications: LIGHTHEADEDNESS Rhythm: Sinus Technical Quality: Good FINDINGS Left Ventricle Normal size left ventricle. No obvious regional wall motion abnormalities. Normal left ventricular ejection fraction estimated at 55-60%. Right Ventricle Normal right ventricular size and function. Right Atrium Normal right atrial size. Left Atrium Mild left atrial dilatation. Mitral Valve Mitral valve thickened. Mild mitral annular calcification. Trace to mild mitral regurgitation. Aortic Valve Trileaflet aortic valve. Focal thickening of the aortic valve cusps. No aortic stenosis. No aortic regurgitation. Tricuspid Valve Tricuspid valve not well visualized, grossly normal. Pulmonic Valve Structurally normal pulmonic valve. Pericardium No pericardial effusion. Great Vessels Normal size aortic root and proximal ascending aorta. CONCLUSIONS 1. Minimal to mild aortic sclerosis is present. There is no valvular stenosis or insufficiency. 2. Mitral leaflet thickening is present with mild annular calcification and minimal to mild mitral insufficiency with mild left atrial enlargement. 3. No significant pericardial fluid was packed on the study. 4. The left ventricular chamber size is normal with a normal ejection fraction and no resting wall motion abnormalities. 5. The right heart structures are grossly normal. The right ventricular systolic pressure could not be accurately assessed on this study. Darnell Sood M.D. (Electronically Signed) Final Date: 25 May 2018 08:13 MEASUREMENTS (Male / Female) Normal Values 2D ECHO LV Diastolic Diameter PLAX 4.0 cm 4.2 - 5.9 / 3.9 - 5.3 cm LV Systolic Diameter PLAX 2.8 cm 2.1 - 4.0 cm LV Fractional Shortening PLAX 30.0 % 25 - 46 % LV Ejection Fraction 2D Teich 57.8 % IVS Diastolic Thickness 1.1 cm LVPW Diastolic Thickness 1.0 cm LV Relative Wall Thickness 0.5 RV Internal Dim ED PLAX 2.3 cm 1.9 - 3.8 cm LVOT Diameter 2.0 cm Aortic Root Diameter 2.8 cm LA Systolic Diameter LX 3.5 cm 3.0 - 4.0 / 2.7 - 3.8 cm LA Volume 37.0 cm 18 - 58 / 22 - 52 cm Ascending Aorta Diameter 3.4 cm DOPPLER AV Peak Velocity 101.0 cm/s AV Peak Gradient 4.1 mmHg AV Mean Velocity 75.9 cm/s AV Mean Gradient 3.0 mmHg AV Velocity Time Integral 27.9 cm LVOT Peak Velocity 71.5 cm/s LVOT Peak Gradient 2.0 mmHg LVOT Mean Velocity 48.7 cm/s LVOT Mean Gradient 1.0 mmHg LVOT Velocity Time Integral 18.8 cm LVOT Stroke Volume 59.1 cm AV Area Cont Eq vti 2.1 cm AV Area Cont Eq pk 2.2 cm MV Peak Velocity 76.3 cm/s MV Peak Gradient 2.3 mmHg MV Mean Velocity 42.4 cm/s MV Mean Gradient 1.0 mmHg Mitral E Point Velocity 54.5 cm/s Mitral A Point Velocity 64.4 cm/s Mitral E to A Ratio 0.8 MV PHT Velocity 62.1 cm/s MV Deceleration [place] 243.0 cm/s MV Pressure Half Time 76.7 ms MV Area PHT 2.9 cm MV Deceleration Time 251.0 ms TR Peak Velocity 67.0 cm/s TR Peak Gradient 1.8 mmHg Right Atrial Pressure 5.0 mmHg Pulmonary Artery Systolic Pressu 6.8 mmHg Right Ventricular Systolic Press 6.8 mmHg PV Peak Velocity 82.7 cm/s PV Peak Gradient 2.7 mmHg PV Mean Velocity 57.9 cm/s PV Mean Gradient 2.0 mmHg PV Velocity Time Integral 19.9 cm LV E' Lateral Velocity 7.4 cm/s Mitral E to LV E' Lateral Ratio 7.4 LV E' Septal Velocity 8.6 cm/s Mitral E to LV E' Septal Ratio 6.3
--- NOTE | 2018-05-25 09:16 | PN- Cardiology ---
Subjective Subjective: Feeling well, no complaints. No arrhythmia recorded on telemetry. No chest pains or dyspnea. Patient remains quite anxious about recurrence of syncope. Objective Vital Signs and I&Os Vital Signs Date Time Temp Pulse Resp B/P B/P Pulse O2 O2 Flow FiO2 Mean Ox Delivery Rate 05/25 0652 80 132/82 05/25 0639 98.7 80 18 132/82 94 Room Air 05/24 2215 97.5 76 14 108/70 95 05/24 1923 98.3 78 16 180/96 97 05/24 1718 98.0 74 18 157/98 95 Room Air 05/24 1432 97 Room Air 05/24 1419 98.1 68 12 144/90 97 Room Air 05/24 1158 97.6 82 18 114/76 99 Room Air Intake & Output 05/25 1600 05/25 0800 05/25 0000 05/24 1600 05/24 0800 05/24 0000 Intake Total 220 300 Output Total Balance 220 300 Intake, Oral 220 300 Patient 176 lb 168 lb Weight Weight Standing Scale Measurement Method Physical Exam General Appearance: well developed/nourished, alert, awake, anxious, comfortable Neck: normal inspection, supple, full range of motion (no jvd) Respiratory: normal breath sounds, chest non-tender, no respiratory distress, quiet respiration, lungs clear Cardiovascular: regular rate/rhythm (no murmur), edema (no heave) Abdomen: normal bowel sounds, soft, non-tender Extremities: normal inspection, normal capillary refill, no edema Current Medications: Current Medications Sig/Aramis Start time Last Medication Dose Route Stop Time Status Admin Gabapentin 400 MG 4 TIMES/DAY 05/24 1700 AC 05/24 PO 2248 Insulin Aspart 0 TIDAC/HS 05/24 1700 AC SC Lisinopril 10 MG DAILY 05/25 0900 AC PO Nicotine 0 .STK-MED ONE 05/24 1725 DC TOP Nicotine 21 MG DAILY 05/24 1624 AC 05/24 TOP 1733 Omeprazole 0 .STK-MED ONE 05/24 1725 DC PO Omeprazole 40 MG DAILY AC 05/24 1630 AC 05/25 PO 0620 Paroxetine HCl 40 MG DAILY 05/25 0900 AC PO Trazodone HCl 100 MG AT BEDTIME PRN 05/24 1630 AC PO Results Last 48 Hrs of Labs/Mics: Laboratory Tests 05/25/18 0857: Prolactin Pending, CBC w Diff Pending, WBC Pending, RBC Pending, Hgb Pending, Hct Pending, MCV Pending, MCH Pending, MCHC Pending, RDW Pending, Plt Count Pending, MPV Pending 05/24/18 1400: Urine Opiates Screen < 100, Methadone Screen 49, Barbiturate Screen < 60, Ur Phencyclidine Scrn < 6.00, Amphetamines Screen < 100, U Benzodiazepines Scrn < 85, Urine Cocaine Screen < 50, Urine Cannabis Screen < 5.00, Urinalysis LIGHT H , Urine Color YEL, Urine Clarity HAZY H, Urine pH 6.0, Ur Specific Lipan <= 1.005, Urine Protein NEG, Urine Ketones NEG, Urine Nitrite NEG, Urine Bilirubin NEG, Urine Urobilinogen 0.2, Ur Leukocyte Esterase SMALL H, Ur Microscopic SEDIMENT EXAMINED, Urine WBC 15-25 H, Ur Epithelial Cells FEW, Urine Bacteria FEW H, Urine Mucus RARE, Micro UA Comment BUDDING YEAST H, Urine Hemoglobin NEG, Urine Glucose >=1000 H 05/24/18 1210: Anion Gap 9, Estimated GFR 57 L, BUN/Creatinine Ratio 13.0, Glucose 126 H, Hemoglobin A1c Pending, Calcium 9.0, Total Bilirubin 0.4, AST 29, ALT 29, Alkaline Phosphatase 51, Troponin I < 0.01, Total Protein 7.1, Albumin 3.9, Globulin 3.2, Albumin/Globulin Ratio 1.2, Vitamin B12 259, Folate 6.6, Prolactin 106.1 H, CBC w Diff NO MAN DIFF REQ, RBC 4.48, MCV 86.4, MCH 29.7, MCHC 34.3, RDW 14.1, MPV 9.5, Gran % 63.1, Lymphocytes % 22.8, Monocytes % 5.8, Eosinophils % 8.1 H, Basophils % 0.2, Absolute Granulocytes 3.4, Absolute Lymphocytes 1.2, Absolute Monocytes 0.3, Absolute Eosinophils 0.4, Absolute Basophils 0, Serum Alcohol < 10.0 Assessment/Plan Assessment/Plan Orthostatic hypotension likely in the context of dehydration/lisinopril 10mg/ long period standing. Discharge with event monitor to be placed at my office as outpatient. Continue telemetry? Yes
[2018-05-25 09:20] LABS: ABSOLUTE BASOPHIL COUNT 0 /CUMM (0.0-0.2); ABSOLUTE EOSINOPHIL COUNT 0.4 /CUMM (0.0-0.7); ABSOLUTE GRANULOCYTE CT 3.3 /CUMM (1.4-6.5); ABSOLUTE LYMPH COUNT 1.1 /CUMM (1.2-3.4); ABSOLUTE MONOCYTE COUNT 0.3 /CUMM (0.10-0.60); BASOPHIL % 0.2 % (0.0-2.0); EOSINOPHIL % 7.6 % (0-5); GRANULOCYTE % 64.7 % (42.2-75.2); MEAN CORPUSCULAR HGB CONC 33.7 G/DL (33.0-37.0); MEAN CORPUSCULAR VOLUME 86.1 FL (81.0-99.0); MEAN PLATELET VOLUME 9.4 FL (7.4-10.4); PLATELET COUNT 86 /CUMM (130-400); RBC DISTRIBUTION WIDTH 14.4 % (11.5-14.5); RED BLOOD CELL CT 4.54 /CUMM (4.20-5.40); WHITE BLOOD CELL COUNT 5.1 /CUMM (4.8-10.8)
[2018-05-25 09:34] VITALS: BP 132/82
--- NOTE | 2018-05-25 10:14 | Patient Discharge Instructions ---
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 Please follow-up with the restaurant host/hostess regarding the event monitor placement. Diet Continue normal diet: Yes Activity Full Activity/No Limits: No Activity Self Limited: Yes Acute Coronary Syndrome Inclusion Criteria At DC or during hospital stay patient has or had the following: ACS DIAGNOSIS No Discharge Core Measures Meds if any: Prescribed or Continued at Discharge Meds if any: NOT Prescribed or Continued at Discharge Congestive Heart Failure Inclusion Criteria At DC or during hospital stay patient has or had the following: CHF DIAGNOSIS No Discharge Core Measures Meds if any: Prescribed or Continued at Discharge Meds if any: NOT Prescribed or Continued at Discharge Cerebrovascular accident Inclusion Criteria At DC or during hospital stay patient has or had the following: CVA/TIA Diagnosis No Discharge Core Measures Meds if any: Prescribed or Continued at Discharge Meds if any: NOT Prescribed or Continued at Discharge Venous thromboembolism Inclusion Criteria VTE Diagnosis No VTE Type NONE VTE Confirmed by (Test) NONE Discharge Core Measures - Per Current guidelines, there needs to be overlap - treatment for the first 5 days of Warfarin therapy. - If discharged on Warfarin prior to 5 days of - overlap therapy, the patient will need to be - assessed for post discharge needs including - *Post discharge parental anticoagulation - *Warfarin and/or parental anticoagulation education - *Follow up date to check INR post discharge At least 5 days overlap therapy as Inpatient No Meds if any: Prescribed or Continued at Discharge Note: Overlap Therapy is Warfarin and Anticoagulant Meds if any: NOT Prescribed or Continued at Discharge
== END 2018-05-25 13:55 ==
LOC: ERH 11:51 → 1NO 15:00 → ERHI 15:00 → ENRESERV 16:50 → ENTRNSPT 17:46 → EDTRNSPTSTS 18:37 → EDTRNSPT 18:37 → 1NO 18:50 → ERHI 18:53 → 1NO 19:00 → CMPTRNSPT 19:01 → 1NO 05-25 07:59 → ENPENDDIS 05-25 12:41 → 1NO 05-25 13:55
PROVIDERS: Physician Assistant Medical; Student in an Organized Health Care Education/Training Program
DX: R55 Syncope and collapse (principal); F41.9 Anxiety disorder, unspecified; F32.9 Major depressive disorder, single episode, unspecified; E11.9 Type 2 diabetes mellitus without complications; Z79.84 Long term (current) use of oral hypoglycemic drugs; Z79.4 Long term (current) use of insulin; K21.9 Gastro-esophageal reflux disease without esophagitis; F41.0 Panic disorder [episodic paroxysmal anxiety]; F17.200 Nicotine dependence, unspecified, uncomplicated; W18.30XA Fall on same level, unspecified, initial encounter; Y92.000 Kitchen of unspecified non-institutional (private) residence as the place of occurrence of the external cause; R00.2 Palpitations; M25.579 Pain in unspecified ankle and joints of unspecified foot; F12.90 Cannabis use, unspecified, uncomplicated; Z79.899 Other long term (current) drug therapy; I34.1 Nonrheumatic mitral (valve) prolapse; K70.30 Alcoholic cirrhosis of liver without ascites
CPT/HCPCS: 6020; 73030-LT; 80307; 81001; 87086; 87088; 93005; 93010; 93306; 97116-GP; 97161-GP; G0378; G0480